=== PATIENT | female | born 1965 | race Two or more races ===

== ENCOUNTER 2016-06-28 02:15 | Emergency (ER) | payer BC, OTHER ==
--- NOTE | 2016-06-28 03:52 | ER Document Report ---
ED General - General Chief Complaint: Flank Pain Stated Complaint: LEFT SIDE FLANK PAIN Mode of Arrival: Ambulatory Information source: Patient Notes: Patient presents to emergency department with complaints of left-sided flank pain and nausea and vomiting. Patient reports history of arthritis in her hips joints and knees. Patient is on chronic pain medication for this, percocet 10mg /325 QID per [facility]. Pt is also taking phenteremine. She reports she's had a headache for weeks she's felt hot her last bowel movement was Saturday. Yesterday she made spaghetti. She started vomiting after she ate it. When she was vomiting her left flank started hurting. She denies fever. TRAVEL OUTSIDE OF THE [place] IN LAST 30 DAYS: No - HPI Onset: Yesterday Onset/Duration: Sudden Quality of pain: Achy, Sharp Severity: Severe Pain Level: 5 Associated symptoms: Nausea, Vomiting Exacerbated by: Denies Relieved by: Denies Similar symptoms previously: No Recently seen / treated by doctor: No - Related Data Allergies/Adverse Reactions: No Known Drug Allergies Allergy (Unknown, Verified 12/31/12 19:52) tapes/bandaids Allergy (Intermediate, Uncoded 12/31/12 19:52) irritation/redness at site of skin contact Home Medications: Current Home Medications Cyclobenzaprine HCl [Cyclobenzaprine HCl] 10 mg PO TID 06/28/16 [History] Diclofenac Sodium [Diclofenac Sodium] 1 applic TOP BID 06/28/16 [History] Lisinopril [Lisinopril] 10 mg PO DAILY 06/28/16 [History] Oxycodone HCl/Acetaminophen [Percocet 5-325 mg Tablet] 1 tab PO Q6HP PRN [History] Past Medical History - General Information source: Patient Last Menstrual Period: na - Social History Smoking Status: Never Smoker Cigarette use (# per day): No Chew tobacco use (# tins/day): No Frequency of alcohol use: Occasional Drug Abuse: None Lives with: Family Family History: Reviewed & Not Pertinent Patient has suicidal ideation: No Patient has homicidal ideation: No - Past Medical History Cardiac Medical History: Denies: Hx Coronary Artery Disease, Hx Heart Attack, Hx Hypertension Pulmonary Medical History: Denies: Hx Asthma - SEASONAL ALLERGIES, Hx Bronchitis, Hx COPD, Hx Pneumonia Neurological Medical History: Denies: Hx Cerebrovascular Accident, Hx Seizures Endocrine Medical History: Denies: Hx Graves' Disease, Hx Hyperthyroidism, Hx Hypothyroidism Renal/ Medical History: Reports: Hx Ovarian Cysts - lap ovarian cystectomy September 2012. Denies: Hx End Stage Renal Disease, Hx Kidney Stones, Hx Peritoneal Dialysis, Hx Pelvic Inflammatory Disease Malignancy Medical History: Denies: Hx Breast Cancer, Hx Cervical Cancer, Hx Leukemia, Hx Ovarian Cancer Musculoskeltal Medical History: Reports Hx Arthritis, Denies Hx Fibromyalgia, Denies Hx Muscular Dystrophy Traumatic Medical History: Denies: Hx Fractures Infectious Medical History: Denies: Hx HIV Past Surgical History: Reports: Hx Cholecystectomy - open 1990, Hx Gynecologic Surgery - essure, Hx Orthopedic Surgery - right knee. Denies: Hx Appendectomy, Hx Bowel Surgery, Hx Section, Hx Coronary Artery Bypass Graft, Hx Gastric Bypass Surgery, Hx Herniorrhaphy, Hx Hysterectomy, Hx Mastectomy, Hx Pacemaker, Hx Tonsillectomy, Hx Tubal Ligation - Immunizations Hx Diphtheria, Pertussis, Tetanus Vaccination: No Review of Systems - Review of Systems Notes: Review HPI for review of systems., All other systems negative Physical Exam - Vital signs Vitals: Temp Pulse Resp BP Pulse Ox 97.7 F 82 18 139/80 H 98 06/28/16 02:17 06/28/16 02:17 06/28/16 02:17 06/28/16 02:17 06/28/16 02:17 - Notes Notes: PHYSICAL EXAMINATION: GENERAL: Well-appearing c/o severe flank pain HEAD: Atraumatic, normocephalic. EYES: Pupils equal round extraocular movements intact, sclera anicteric, conjunctiva are normal. ENT: nares patent, Moist mucous membranes. NECK: Normal range of motion, supple without lymphadenopathy LUNGS: CTAB and equal. No wheezes rales or rhonchi. HEART: Regular rate and rhythm without murmurs ABDOMEN: Soft, no tenderness. No guarding, no rebound denies pain BACK: C/O Left CVA tenderness EXTREMITIES: Normal range of motion, no pitting edema. No cyanosis. NEUROLOGICAL: Cranial nerves grossly intact. Normal sensory/motor exams. PSYCH: Normal mood, normal affect. SKIN: Warm, Dry, normal turgor, no rashes or lesions noted Course - Re-evaluation Re-evalutation: 06/28/16 No further vomiting noted WBC 16.5. Patient complaining of flank pain. Will be treated for UTI. Patient reports Toradol relieved her pain. She will be sent home with a prescription for Macrobid. Given a Macrobid here along with a Zofran dispense pack. Patient's feels much better. She was also instructed on the importance of monitoring her diet due to the medications she is taking that could cause constipation. She verbalized understanding - Vital Signs Vital signs: Temp Pulse Resp BP Pulse Ox 97.7 F 80 20 142/76 H 98 06/28/16 02:17 06/28/16 04:35 06/28/16 04:35 06/28/16 04:35 06/28/16 04:35 - Laboratory Result Diagrams: 06/28/16 04:02 06/28/16 04:02 Laboratory results interpreted by me: 06/28/16 06/28/16 06/28/16 04:02 04:02 05:31 WBC 16.4 H Seg Neutrophils % 91.4 H Lymphocytes % 5.2 L Absolute Neutrophils 15.0 H Glucose 153 H Ur Leukocyte Esterase TRACE H Urine Ascorbic Acid 20 H Discharge - Discharge Clinical Impression: Flank pain, Elevated blood pressure reading UTI (urinary tract infection) Qualifiers: Urinary tract infection type: site unspecified Hematuria presence: without hematuria Qualified Code(s): N39.0 - Urinary tract infection, site not specified Condition: Stable Disposition: HOME, SELF-CARE Instructions: Toradol Injection ([facility]), Urinary Tract Infection ([facility]), Antinausea Medication ([facility]), Vomiting ([facility]), Nitrofurantoin ([facility]) Additional Instructions: *You have been evaluated for flank pain, nausea/vomiting, UTI *Take medication as prescribed *Push fluids *Follow up with Dr Chandra tomorrow for recheck *Plan urine recheck in one week *Monitor your blood pressure. Your blood pressure was elevated today. This may be because you were anxious, in pain or because you need medication. It is important to follow up with your primary care provider for full evaluation. *Return to ED for worsening condition, changes, needs, fever, increased pain, concerns *Return to ED if not better in 24 hours Prescriptions: Nitrofurantoin/Nitrofuran Mac [Macrobid 100 mg Capsule] 100 mg PO BID #20 capsule Forms: Elevated Blood Pressure Referrals: MAYRA,SAL, DO [Primary Care Provider] - Follow up tomorrow
[2016-06-28] MEDS ORDERED: NORMAL SALINE 1000 ML 1,000 ML IV ONE (04:15)
[2016-06-28 04:22] LABS: ABSOLUTE LYMPHOCYTES (AUTO) 0.9 10^3/uL (0.5-4.7); ABSOLUTE MONOCYTES (AUTO) 0.5 10^3/uL (0.1-1.4); BASOPHILS % (AUTO) 0.3 % (0-2); EOSINOPHILS % (AUTO) 0.1 % (0-6); HEMATOCRIT 38.1 % (36.0-47.0); HEMOGLOBIN 12.8 g/dL (12.0-15.5); HGB HCT DIFFERENCE 0.3; LYMPHOCYTES % (AUTO) 5.2 % (13-45); MEAN CORPUSCULAR HEMOGLOBIN 28.7 pg (27.0-33.4); MEAN CORPUSCULAR HGB CONC 33.5 g/dL (32.0-36.0); MEAN CORPUSCULAR VOLUME 86 fl (80-97); RED BLOOD COUNT 4.45 10^6/uL (3.72-5.28); RED CELL DISTRIBUTION WIDTH 13.7 % (11.5-14.0); SEGMENTED NEUTROPHILS % (AUTO) 91.4 % (42-78); WHITE BLOOD COUNT 16.4 10^3/uL (4.0-10.5)
[2016-06-28 04:39] LABS: ALANINE AMINOTRANSFERASE 40 U/L (9-52); ALBUMIN 4.1 g/dL (3.5-5.0); ALKALINE PHOSPHATASE 113 U/L (38-126); ANION GAP 11 (5-19); ASPARTATE AMINO TRANSFERASE 25 U/L (14-36); BILIRUBIN,TOTAL 0.6 mg/dL (0.2-1.3); BLOOD UREA NITROGEN 10 mg/dL (7-20); CALCIUM 9.6 mg/dL (8.4-10.2); CARBON DIOXIDE 27 mmol/L (22-30); CHLORIDE 103 mmol/L (98-107); CREATININE RESULT 0.72 mg/dL (0.52-1.25); GLUCOSE 153 mg/dL (75-110); POTASSIUM 4.5 mmol/L (3.6-5.0); SODIUM 140.8 mmol/L (137-145); TOTAL PROTEIN 7.3 g/dL (6.3-8.2)
[2016-06-28] MEDS ORDERED: KETOROLAC TROMETHAMINE INJ/PF 30 MG/1 ML SDV IV ONE (05:14)
[2016-06-28] MEDS ORDERED: NORMAL SALINE 1000 ML 500 ML IV ONE (05:14)
[2016-06-28 05:53] LABS: BILIRUBIN,URINE NEGATIVE (NEGATIVE); GLUCOSE, URINE NEGATIVE (NEGATIVE); KETONES,URINE NEGATIVE (NEGATIVE); LEUKOCYTE ESTERASE,URINE TRACE (NEGATIVE); NITRITE,URINE NEGATIVE (NEGATIVE); PROTEIN,URINE NEGATIVE (NEGATIVE); URINE SPECIFIC GRAVITY 1.021; UROBILINOGEN,URINE NEGATIVE mg/dL (<2.0)
[2016-06-28 05:54] LABS: APPEARANCE,URINE SLIGHTLY-CLOUDY
[2016-06-28] MEDS ORDERED: CIPROFLOXACIN HCL 500 MG TABLET PO ONE (06:07)
[2016-06-28] MEDS ORDERED: ONDANSETRON ODT 4 MG TAB (6 TAB/DSPK) PO PRN (06:10)
[2016-06-28] MEDS ORDERED: NITROFURANTOIN MONOHYD/M-CRYST 100 MG CAPSULE PO ONE (06:11)
[2016-06-28 07:00] VITALS: BP 132/68
== END 2016-06-28 07:00 | disposition home or self-care (01) ==
LOC: ER 02:15
DX: N39.0 Urinary tract infection, site not specified (principal); R03.0 Elevated blood-pressure reading, without diagnosis of hypertension; R10.9 Unspecified abdominal pain; R11.2 Nausea with vomiting, unspecified; R51 Headache; M16.10 Unilateral primary osteoarthritis, unspecified hip; M17.9 Osteoarthritis of knee, unspecified; Z79.891 Long term (current) use of opiate analgesic; Z79.899 Other long term (current) drug therapy; Z90.49 Acquired absence of other specified parts of digestive tract
CPT/HCPCS: 99284; 96361; 96374; 36415; 84703; 85025; 80053; 81001; J1885; J7030; J8499

== ENCOUNTER → 2017-09-02 | Outpatient (CLI) | payer BC ==
--- NOTE | 2017-09-02 15:12 | RADIOLOGY REPORT (SQ) ---
EXAM DESCRIPTION: KNEE LEFT 4 VIEWS COMPLETED DATE/TIME: 09/02/2017 2:32 pm REASON FOR STUDY: PAIN IN LEFT KNEE M25.562 PAIN IN LEFT KNEE COMPARISON: 03/19/2018 NUMBER OF VIEWS: Four views. TECHNIQUE: AP, lateral, and both oblique radiographic images acquired of the left knee. LIMITATIONS: None. FINDINGS: MINERALIZATION: Normal. BONES: No acute fracture or dislocation. A sclerotic rim in the lateral aspect of the proximal, prob ably on a nonaggressive basis. JOINT: Mild to moderate narrowing, mild subchondral sclerosis and small osteophytes off of the media l and lateral articular margins. Moderate severe to marked patellofemoral compartment narrowing and osteophytes off of the patellar poles. No effusion. SOFT TISSUES: No soft tissue swelling. No radio-opaque foreign body. OTHER: No other significant finding. IMPRESSION: 1 Tricompartmental arthritic changes, more pronounced and severe at the patellofemoral c ompartment. TECHNICAL DOCUMENTATION: JOB ID: [id number] [employer]- All Rights Reserved Reading location - IP/workstation name: [email or web address]
== END ==
LOC: OD 14:08
PROVIDERS: ATTEND Family Medicine
DX: M25.562 Pain in left knee (principal)

== ENCOUNTER 2018-12-27 12:49 | Emergency (ER) | payer BC ==
[2018-12-27 12:55] VITALS: BP 156/83
--- NOTE | 2018-12-27 13:02 | ER Document Report ---
ED Medical Screen (RME) - General Chief Complaint: Abdominal Pain Stated Complaint: RIGHT FLANK PAIN Time Seen by Provider: 12/27/18 12:54 Primary Care Provider: SAL NUNEZ DO [Primary Care Provider] - Follow up as needed Information source: Patient Notes: Patient presents complaining of right lateral side pain for the past 4 days that radiates to the right flank area. Patient denies any fever, nausea, vomiting or urinary symptoms. Patient does report diarrhea x2 episodes today. hx: Hypertension, diabetes, cholecystectomy, orthopedic surgery I have greeted and performed a rapid initial assessment of this patient. A comprehensive ED assessment and evaluation of the patient, analysis of test results and completion of the medical decision making process will be conducted by additional ED providers. TRAVEL OUTSIDE OF THE [place] IN LAST 30 DAYS: No - Related Data Allergies/Adverse Reactions: No Known Drug Allergies Allergy (Unknown, Verified 12/27/18 12:50) tapes/bandaids Allergy (Intermediate, Uncoded 12/27/18 12:50) irritation/redness at site of skin contact Past Medical History - Past Medical History Cardiac Medical History: Denies: Hx Coronary Artery Disease, Hx Heart Attack, Hx Hypertension Pulmonary Medical History: Denies: Hx Asthma - SEASONAL ALLERGIES, Hx Bronchitis, Hx COPD, Hx Pneumonia Neurological Medical History: Denies: Hx Cerebrovascular Accident, Hx Seizures Endocrine Medical History: Denies: Hx Graves' Disease, Hx Hyperthyroidism, Hx Hypothyroidism Renal/ Medical History: Reports: Hx Ovarian Cysts - lap ovarian cystectomy September 2012. Denies: Hx End Stage Renal Disease, Hx Kidney Stones, Hx Peritoneal Dialysis, Hx Pelvic Inflammatory Disease Malignancy Medical History: Denies: Hx Breast Cancer, Hx Cervical Cancer, Hx Leukemia, Hx Ovarian Cancer Musculoskeltal Medical History: Reports Hx Arthritis, Denies Hx Fibromyalgia, Denies Hx Muscular Dystrophy, Denies Hx Systemic Lupus Erythematosus Traumatic Medical History: Denies: Hx Fractures Infectious Medical History: Denies: Hx HIV Past Surgical History: Reports: Hx Cholecystectomy - open 1990, Hx Gynecologic Surgery - essure, Hx Orthopedic Surgery - right knee. Denies: Hx Appendectomy, Hx Bowel Surgery, Hx Section, Hx Coronary Artery Bypass Graft, Hx Gastric Bypass Surgery, Hx Herniorrhaphy, Hx Hysterectomy, Hx Mastectomy, Hx Pacemaker, Hx Tonsillectomy, Hx Tubal Ligation - Immunizations Hx Diphtheria, Pertussis, Tetanus Vaccination: No Physical Exam - Vital signs Vitals: Temp Pulse Resp BP Pulse Ox 97.9 F 92 17 156/83 H 98 12/27/18 12:54 12/27/18 12:54 12/27/18 12:54 12/27/18 12:54 12/27/18 12:54 - Abdominal Inspection: Morbidly Obese Tenderness: Tender - Right lateral side pain Course - Vital Signs Vital signs: Temp Pulse Resp BP Pulse Ox 97.9 F 92 17 156/83 H 98 12/27/18 12:54 12/27/18 12:54 12/27/18 12:54 12/27/18 12:54 12/27/18 12:54 Doctor's Discharge - Discharge Referrals: SAL NUNEZ DO [Primary Care Provider] - Follow up as needed
[2018-12-27 13:23] LABS: ABSOLUTE BASOPHILS # (AUTO) 0.1 10^3/uL (0.0-0.2); ABSOLUTE EOSINOPHILS # (AUTO) 0.4 10^3/uL (0.0-0.6); ABSOLUTE LYMPHOCYTES (AUTO) 2.7 10^3/uL (0.5-4.7); ABSOLUTE MONOCYTES (AUTO) 0.5 10^3/uL (0.1-1.4); ABSOLUTE NEUT (AUTO) 7.7 10^3/uL (1.7-8.2); BASOPHILS % (AUTO) 0.4 % (0-2); EOSINOPHILS % (AUTO) 3.3 % (0-6); HEMOGLOBIN 12.2 g/dL (12.0-15.5); LYMPHOCYTES % (AUTO) 23.7 % (13-45); MEAN CORPUSCULAR HEMOGLOBIN 27.1 pg (27.0-33.4); MEAN CORPUSCULAR VOLUME 82 fl (80-97); MONOCYTES % (AUTO) 4.2 % (3-13); PLATELET COUNT 346 10^3/uL (150-450); RED BLOOD COUNT 4.52 10^6/uL (3.72-5.28); RED CELL DISTRIBUTION WIDTH 15.1 % (11.5-14.0); SEGMENTED NEUTROPHILS % (AUTO) 68.4 % (42-78); TOTAL CELLS COUNTED % (AUTO) 100 %; WHITE BLOOD COUNT 11.3 10^3/uL (4.0-10.5)
[2018-12-27 13:44] LABS: ALBUMIN 4.1 g/dL (3.5-5.0); ALKALINE PHOSPHATASE 103 U/L (38-126); ANION GAP 9 (5-19); ASPARTATE AMINO TRANSFERASE 29 U/L (14-36); BILIRUBIN,DIRECT 0.1 mg/dL (0.0-0.4); BILIRUBIN,TOTAL 0.6 mg/dL (0.2-1.3); BLOOD UREA NITROGEN 13 mg/dL (7-20); CALCIUM 9.1 mg/dL (8.4-10.2); CARBON DIOXIDE 29 mmol/L (22-30); CHLORIDE 103 mmol/L (98-107); GLUCOSE 175 mg/dL (75-110); POTASSIUM 3.9 mmol/L (3.6-5.0); TOTAL PROTEIN 7.3 g/dL (6.3-8.2)
[2018-12-27 13:45] LABS: APPEARANCE,URINE CLOUDY; BILIRUBIN,URINE NEGATIVE (NEGATIVE); COLOR,URINE YELLOW; GLUCOSE, URINE NEGATIVE (NEGATIVE); KETONES,URINE NEGATIVE (NEGATIVE); LEUKOCYTE ESTERASE,URINE MODERATE (NEGATIVE); NITRITE,URINE NEGATIVE (NEGATIVE); PROTEIN,URINE NEGATIVE (NEGATIVE); URINE SPECIFIC GRAVITY 1.021; UROBILINOGEN,URINE NEGATIVE mg/dL (<2.0)
[2018-12-27] MEDS ORDERED: KETOROLAC TROMETHAMINE INJ/PF 30 MG/1 ML SDV IV ONE (14:09)
--- NOTE | 2018-12-27 14:15 | ER Document Report ---
ED General - General Chief Complaint: Abdominal Pain Stated Complaint: RIGHT FLANK PAIN Time Seen by Provider: 12/27/18 12:54 Primary Care Provider: SAL CARR DO [Primary Care Provider] - Follow up as needed TRAVEL OUTSIDE OF THE [place] IN LAST 30 DAYS: No - HPI Notes: Patient is a 53-year-old female presents emergency department for evaluation of right-sided flank pain. She had similar symptoms about 10 days ago. It seemed to get better. It was a constant ache with occasional stabbing pains. She points to her right flank area, states now it radiates into her right back. She states the pain went away but restarted on . She saw her primary care provider. He recommended she try her Voltaren gel on the area and ordered an ultrasound. She has not yet had the ultrasound. She said no fevers or chills. No nausea or vomiting. Eating and drinking normally. She did have 2 episodes of loose bowels. No hematuria, dysuria, or urinary frequency. - Related Data Allergies/Adverse Reactions: No Known Drug Allergies Allergy (Unknown, Verified 12/27/18 12:50) tapes/bandaids Allergy (Intermediate, Uncoded 12/27/18 12:50) irritation/redness at site of skin contact Past Medical History - General Information source: Patient - Social History Smoking Status: Never Smoker Frequency of alcohol use: None Drug Abuse: None Family History: Reviewed & Not Pertinent Patient has suicidal ideation: No Patient has homicidal ideation: No - Past Medical History Cardiac Medical History: Denies: Hx Coronary Artery Disease, Hx Heart Attack, Hx Hypertension Pulmonary Medical History: Denies: Hx Asthma - SEASONAL ALLERGIES, Hx Bronchitis, Hx COPD, Hx Pneumonia Neurological Medical History: Denies: Hx Cerebrovascular Accident, Hx Seizures Endocrine Medical History: Denies: Hx Graves' Disease, Hx Hyperthyroidism, Hx Hypothyroidism Renal/ Medical History: Reports: Hx Ovarian Cysts - lap ovarian cystectomy September 2012. Denies: Hx End Stage Renal Disease, Hx Kidney Stones, Hx Peritoneal Dialysis, Hx Pelvic Inflammatory Disease Malignancy Medical History: Denies: Hx Breast Cancer, Hx Cervical Cancer, Hx Leukemia, Hx Ovarian Cancer Musculoskeletal Medical History: Reports Hx Arthritis, Denies Hx Fibromyalgia, Denies Hx Muscular Dystrophy, Denies Hx Systemic Lupus Erythematosus Traumatic Medical History: Denies: Hx Fractures Infectious Medical History: Denies: Hx HIV Past Surgical History: Reports: Hx Cholecystectomy - open 1990, Hx Gynecologic Surgery - essure, Hx Orthopedic Surgery - right knee. Denies: Hx Appendectomy, Hx Bowel Surgery, Hx Section, Hx Coronary Artery Bypass Graft, Hx Gastric Bypass Surgery, Hx Herniorrhaphy, Hx Hysterectomy, Hx Mastectomy, Hx Pacemaker, Hx Tonsillectomy, Hx Tubal Ligation - Immunizations Hx Diphtheria, Pertussis, Tetanus Vaccination: No Review of Systems - Review of Systems Constitutional: No symptoms reported EENT: No symptoms reported Cardiovascular: No symptoms reported Respiratory: No symptoms reported Gastrointestinal: See HPI Genitourinary: See HPI Female Genitourinary: No symptoms reported Musculoskeletal: See HPI Skin: No symptoms reported Neurological/Psychological: No symptoms reported Physical Exam - Vital signs Vitals: Temp Pulse Resp BP Pulse Ox 97.9 F 92 17 156/83 H 98 12/27/18 12:54 12/27/18 12:54 12/27/18 12:54 12/27/18 12:54 12/27/18 12:54 - Notes Notes: This is a very pleasant 53-year-old female who appears her stated age in no acute distress. Vital signs reviewed, please refer to chart. Head is normocephalic, atraumatic. Pupils equal round, reactive to light. Neck is supple without meningismus. Heart is regular rate and rhythm. Lungs are clear to auscultation bilaterally. Abdomen is soft, nontender, normoactive bowel sounds throughout. She is significantly tender over the oblique muscles on the right, more lateral of the peritoneal cavity. No CVA tenderness. Her tenderness is also reproducible over the paraspinal musculature from L2-L4 on the right. Extremities without cyanosis, clubbing. Posterior calves are nontender. Peripheral pulses are equal. Skin is warm and dry. Patient is awake, alert, neurological exam is nonfocal. Course - Re-evaluation Re-evalutation: 12/27/18 14:16 Patient presents emergency department for evaluation of right flank pain. I watched the patient get up out of the chair, get down into the bed, and then back up again. This caused her significant discomfort. She does not have any significant abdominal tenderness on exam. My strong suspicion is that this is musculoskeletal. I explained findings to the patient. With the lack of any oth er significant symptoms, beyond 2 loose stools in the last 24 hours, I will treat conservatively as musculoskeletal. I encouraged her to continue the Voltaren gel. The patient is already on Flexeril as well as oxycodone at home. She is given Toradol here. She is to follow-up with primary care, return to the ED with worsening or new concerning symptoms of any sort. - Vital Signs Vital signs: Temp Pulse Resp BP Pulse Ox 97.9 F 92 17 156/83 H 98 12/27/18 12:54 12/27/18 12:54 12/27/18 12:54 12/27/18 12:54 12/27/18 12:54 - Laboratory Result Diagrams: 12/27/18 13:13 12/27/18 13:13 Laboratory results interpreted by me: 12/27/18 12/27/18 12/27/18 13:04 13:13 13:13 WBC 11.3 H RDW 15.1 H Glucose 175 H Ur Leukocyte Esterase MODERATE H Discharge - Discharge Clinical Impression: Right flank pain Condition: Stable Disposition: HOME, SELF-CARE Instructions: Flank Pain ([facility]) Additional Instructions: Continue Voltaren gel, Flexeril, oxycodone as previously prescribed. Follow-up with Dr. Carr next week. Return to the emergency department if you develop worsening or new concerning symptoms of any sort. Referrals: SAL CARR DO [Primary Care Provider] - Follow up as needed
== END 2018-12-27 14:51 | disposition home or self-care (01) ==
LOC: ER 12:49
DX: R10.9 Unspecified abdominal pain (principal)
CPT/HCPCS: 99284; 96374; 36415; 83690; 84703; 85025; 80053; 81001; J1885

== ENCOUNTER 2019-01-13 14:06 | Emergency (ER) | payer BC ==
[2019-01-13] MEDS ORDERED: IBUPROFEN 800 MG TABLET PO ONE (14:31)
--- NOTE | 2019-01-13 14:41 | ER Document Report ---
ED Medical Screen (RME) - General Chief Complaint: Numbness Stated Complaint: RIGHT HEAD/EAR PAIN Time Seen by Provider: 01/13/19 14:16 Primary Care Provider: SAL NUNEZ DO [Primary Care Provider] - Follow up as needed Mode of Arrival: Ambulatory Information source: Patient Notes: Patient presents emergency department with complaints of right-sided ear pain pressure, swollen lymph nodes just feeling off kilter. Patient reports she is a diabetic. She is also being worked up for right-sided pain and has an ultrasound tomorrow scheduled. Also has history of high blood pressure. Patient is very tearful. Patient reports that she is been evaluated by her primary care provider and she also went to urgent care today. Reports she was at [employer] today working on the computer when her vision became blurred blurry. Her boss offered to call her in ambulance but she is not sure why. No blurred vision at this time but she reports she needs to look at the computer. No numbness or tingling. Patient just complains of a headache. She is on chronic pain management and takes OxyContin first thing in the morning for her hip and knee pain. She has not taken anything for her headache and right-sided head pain. Patient temples tender to palpate. Is very emotional tearful. She reports she is been treated by the urgent care, [facility] [place], twice for swollen lymph nodes twice with antibiotics for the same complaint. I have greeted and performed a rapid initial assessment of this patient. A comprehensive ED assessment and evaluation of the patient, analysis of test results and completion of the medical decision making process will be conducted by additional ED providers. Dictation of this chart was performed using voice recognition software; therefore, there may be some unintended grammatical errors. TRAVEL OUTSIDE OF THE [place] IN LAST 30 DAYS: No - Related Data Allergies/Adverse Reactions: No Known Drug Allergies Allergy (Unknown, Verified 12/27/18 12:50) tapes/bandaids Allergy (Intermediate, Uncoded 12/27/18 12:50) irritation/redness at site of skin contact Past Medical History - Social History Frequency of alcohol use: None Drug Abuse: None - Past Medical History Cardiac Medical History: Denies: Hx Coronary Artery Disease, Hx Heart Attack, Hx Hypertension Pulmonary Medical History: Denies: Hx Asthma - SEASONAL ALLERGIES, Hx Bronchitis, Hx COPD, Hx Pneumonia Neurological Medical History: Denies: Hx Cerebrovascular Accident, Hx Seizures Endocrine Medical History: Denies: Hx Graves' Disease, Hx Hyperthyroidism, Hx Hypothyroidism Renal/ Medical History: Reports: Hx Ovarian Cysts - lap ovarian cystectomy September 2012. Denies: Hx End Stage Renal Disease, Hx Kidney Stones, Hx Peritoneal Dialysis, Hx Pelvic Inflammatory Disease Malignancy Medical History: Denies: Hx Breast Cancer, Hx Cervical Cancer, Hx Leukemia, Hx Ovarian Cancer Musculoskeltal Medical History: Reports Hx Arthritis, Denies Hx Fibromyalgia, Denies Hx Muscular Dystrophy, Denies Hx Systemic Lupus Erythematosus Traumatic Medical History: Denies: Hx Fractures Infectious Medical History: Denies: Hx HIV Past Surgical History: Reports: Hx Cholecystectomy - open 1990, Hx Gynecologic Surgery - essure, Hx Orthopedic Surgery - right knee. Denies: Hx Appendectomy, Hx Bowel Surgery, Hx Section, Hx Coronary Artery Bypass Graft, Hx Gastric Bypass Surgery, Hx Herniorrhaphy, Hx Hysterectomy, Hx Mastectomy, Hx Pacemaker, Hx Tonsillectomy, Hx Tubal Ligation - Immunizations Hx Diphtheria, Pertussis, Tetanus Vaccination: No Physical Exam - Vital signs Vitals: Temp Pulse Resp BP Pulse Ox 98.0 F 89 18 174/88 H 97 01/13/19 14:11 01/13/19 14:11 01/13/19 14:11 01/13/19 14:11 01/13/19 14:11 Course - Vital Signs Vital signs: Temp Pulse Resp BP Pulse Ox 98.0 F 89 18 174/88 H 97 01/13/19 14:11 01/13/19 14:11 01/13/19 14:11 01/13/19 14:11 01/13/19 14:11 Doctor's Discharge - Discharge Referrals: SAL NUNEZ DO [Primary Care Provider] - Follow up as needed
[2019-01-13 14:59] LABS: ABSOLUTE EOSINOPHILS # (AUTO) 0.4 10^3/uL (0.0-0.6); ABSOLUTE LYMPHOCYTES (AUTO) 2.7 10^3/uL (0.5-4.7); ABSOLUTE MONOCYTES (AUTO) 0.7 10^3/uL (0.1-1.4); ABSOLUTE NEUT (AUTO) 6.2 10^3/uL (1.7-8.2); BASOPHILS % (AUTO) 0.4 % (0-2); EOSINOPHILS % (AUTO) 4.4 % (0-6); HEMATOCRIT 36.4 % (36.0-47.0); LYMPHOCYTES % (AUTO) 26.6 % (13-45); MEAN CORPUSCULAR HEMOGLOBIN 26.6 pg (27.0-33.4); MEAN CORPUSCULAR HGB CONC 32.9 g/dL (32.0-36.0); MEAN CORPUSCULAR VOLUME 81 fl (80-97); MONOCYTES % (AUTO) 7.3 % (3-13); PLATELET COUNT 368 10^3/uL (150-450); RED BLOOD COUNT 4.51 10^6/uL (3.72-5.28); RED CELL DISTRIBUTION WIDTH 15.3 % (11.5-14.0); SEGMENTED NEUTROPHILS % (AUTO) 61.3 % (42-78); TOTAL CELLS COUNTED % (AUTO) 100 %; WHITE BLOOD COUNT 10.1 10^3/uL (4.0-10.5)
[2019-01-13 15:05] LABS: APPEARANCE,URINE SLIGHTLY-CLOUDY; BILIRUBIN,URINE NEGATIVE (NEGATIVE); COLOR,URINE YELLOW; GLUCOSE, URINE NEGATIVE (NEGATIVE); KETONES,URINE NEGATIVE (NEGATIVE); LEUKOCYTE ESTERASE,URINE NEGATIVE (NEGATIVE); NITRITE,URINE NEGATIVE (NEGATIVE); PROTEIN,URINE NEGATIVE (NEGATIVE); UROBILINOGEN,URINE NEGATIVE mg/dL (<2.0)
[2019-01-13 15:17] LABS: ALBUMIN 3.8 g/dL (3.5-5.0); ALKALINE PHOSPHATASE 116 U/L (38-126); ANION GAP 7 (5-19); ASPARTATE AMINO TRANSFERASE 23 U/L (14-36); BILIRUBIN,DIRECT 0.2 mg/dL (0.0-0.4); BILIRUBIN,TOTAL 0.4 mg/dL (0.2-1.3); BLOOD UREA NITROGEN 9 mg/dL (7-20); CALCIUM 8.9 mg/dL (8.4-10.2); CARBON DIOXIDE 30 mmol/L (22-30); CHLORIDE 102 mmol/L (98-107); GLUCOSE 156 mg/dL (75-110); POTASSIUM 3.7 mmol/L (3.6-5.0); TOTAL PROTEIN 6.9 g/dL (6.3-8.2)
--- NOTE | 2019-01-13 16:46 | RADIOLOGY REPORT (SQ) ---
EXAM DESCRIPTION: CT SOFT TISSUE NECK WITH COMPLETED DATE/TIME: 01/13/2019 4:24 pm REASON FOR STUDY: R side neck pain/swelling COMPARISON: None. TECHNIQUE: Post IV contrasted scanning from skull base through lung apices with review of bone, soft tissue and lung windows. Reconstructed coronal and sagittal MPR images reviewed. All images stored on PACS. All CT scanners at this facility use dose modulation, iterative reconstruction, and/or weight based d osing when appropriate to reduce radiation dose to as low as reasonably achievable (ALARA). [facility]: Dose Right [facility]: CareDose [facility]: Dose Right [facility]: Teradose 4D [facility]: sendwithus CONTRAST TYPE AND DOSE: 74 mL Omnipaque 350 RENAL FUNCTION: BUN 9, creatinine 0.59 RADIATION DOSE: CT Rad equipment meets quality standard of care and radiation dose reduction techniq ues were employed. CTDIvol: 19.8 mGy. DLP: 561 mGy-cm. . LIMITATIONS: None. FINDINGS: SKULL BASE: Intact. MAJOR SALIVARY GLANDS: No solid or cystic masses. The right parotid gland is slightly larger than th e left. No surrounding inflammation. LYMPHADENOPATHY: Scattered small bilateral cervical lymph nodes most likely reactive. MUCOSAL MASSES OR ASYMMETRY: No mucosal masses or asymmetry. LARYNX/CORDS: No abnormal findings. VASCULAR STRUCTURES: The major vessels are patent. LUNG APICES: Clear. BONES: Intact. THYROID: Normal size. No masses. PARANASAL SINUSES: Clear. OTHER: No other significant finding. IMPRESSION: Scattered small cervical lymph nodes. Slight enlargement of the right parotid gland com pared to the left no focal inflammatory changes. TECHNICAL DOCUMENTATION: JOB ID: [id number] Quality ID # [id number]: Final reports with documentation of one or more dose reduction techniques (e.g., Au tomated exposure control, adjustment of the mA and/or kV according to patient size, use of iterative reconstruction technique) 2010 [employer]- All Rights Reserved Reading location - IP/workstation name: [email or web address]
--- NOTE | 2019-01-13 16:58 | ER Document Report ---
HPI - HPI Time Seen by Provider: 01/13/19 14:16 Pain Level: 4 Notes: Patient is a 53-year-old female presenting to the emergency department with chief complaint of right sided facial and neck and ear pressure and pain. She reports she was seen at the urgent care on Saturday and started on amoxicillin. She states that she has had this in the past, was given amoxicillin and it resolved her symptoms. She reports this time the pain has returned and her primary care provider recommended that she get a CAT scan. - REPRODUCTIVE Reproductive: DENIES: : - DERM Skin Color: Normal Past Medical History - General Information source: Patient - Social History Smoking Status: Never Smoker Frequency of alcohol use: None Drug Abuse: None Family History: Reviewed & Not Pertinent Patient has suicidal ideation: No Patient has homicidal ideation: No - Past Medical History Cardiac Medical History: Denies: Hx Coronary Artery Disease, Hx Heart Attack, Hx Hypertension Pulmonary Medical History: Denies: Hx Asthma - SEASONAL ALLERGIES, Hx Bronchitis, Hx COPD, Hx Pneumonia Neurological Medical History: Denies: Hx Cerebrovascular Accident, Hx Seizures Endocrine Medical History: Denies: Hx Graves' Disease, Hx Hyperthyroidism, Hx Hypothyroidism Renal/ Medical History: Reports: Hx Ovarian Cysts - lap ovarian cystectomy September 2012. Denies: Hx End Stage Renal Disease, Hx Kidney Stones, Hx Peritoneal Dialysis, Hx Pelvic Inflammatory Disease Malignancy Medical History: Denies: Hx Breast Cancer, Hx Cervical Cancer, Hx Leukemia, Hx Ovarian Cancer Musculoskeletal Medical History: Reports Hx Arthritis, Denies Hx Fibromyalgia, Denies Hx Muscular Dystrophy, Denies Hx Systemic Lupus Erythematosus Traumatic Medical History: Denies: Hx Fractures Infectious Medical History: Denies: Hx HIV Past Surgical History: Reports: Hx Cholecystectomy - open 1990, Hx Gynecologic Surgery - essure, Hx Orthopedic Surgery - right knee. Denies: Hx Appendectomy, Hx Bowel Surgery, Hx Section, Hx Coronary Artery Bypass Graft, Hx Gastric Bypass Surgery, Hx Herniorrhaphy, Hx Hysterectomy, Hx Mastectomy, Hx Pacemaker, Hx Tonsillectomy, Hx Tubal Ligation - Immunizations Hx Diphtheria, Pertussis, Tetanus Vaccination: No Vertical Provider Document - CONSTITUTIONAL Notes: PHYSICAL EXAMINATION: GENERAL: Well-appearing, well-nourished and in no acute distress. HEAD: Atraumatic, normocephalic. Mild right facial swelling. EYES: Pupils equal round and reactive to light, extraocular movements intact, conjunctiva are normal. ENT: Nares patent, oropharynx clear without exudates. Moist mucous membranes. Bilateral TMs unremarkable, no mastoid tenderness. NECK: Normal range of motion, supple without lymphadenopathy LUNGS: Breath sounds clear to auscultation bilaterally and equal. No wheezes rales or rhonchi. HEART: Regular rate and rhythm without murmurs ABDOMEN: Soft, nontender, nondistended abdomen. No guarding, no rebound. No masses appreciated. Female : deferred Musculoskeletal: Normal range of motion, no pitting or edema. No cyanosis. NEUROLOGICAL: Cranial nerves grossly intact. Normal speech, normal gait. Normal sensory, motor exams PSYCH: Normal mood, normal affect. SKIN: Warm, Dry, normal turgor, no rashes or lesions noted. - INFECTION CONTROL TRAVEL OUTSIDE OF THE [place] IN LAST 30 DAYS: No Course - Re-evaluation Re-evalutation: Soft Tissue Neck CT 01/13/19 15:41 IMPRESSION: Scattered small cervical lymph nodes. Slight enlargement of the right parotid gland compared to the left no focal inflammatory changes. Laboratory 01/13/19 01/13/19 01/13/19 14:45 14:45 14:45 WBC 10.1 RBC 4.51 Hgb 12.0 Hct 36.4 MCV 81 MCH 26.6 L MCHC 32.9 RDW 15.3 H Plt Count 368 Lymph % (Auto) 26.6 [place] % (Auto) 7.3 Eos % (Auto) 4.4 Baso % (Auto) 0.4 Absolute Neuts (auto) 6.2 Absolute Lymphs (auto) 2.7 Absolute Monos (auto) 0.7 Absolute Eos (auto) 0.4 Absolute Basos (auto) 0.0 Seg Neutrophils % 61.3 Sodium 138.9 Potassium 3.7 Chloride 102 Carbon Dioxide 30 Anion Gap 7 BUN 9 Creatinine 0.59 Est GFR ( Amer) > 60 Est GFR (MDRD) Non-Af > 60 Glucose 156 H Calcium 8.9 Total Bilirubin 0.4 Direct Bilirubin 0.2 Neonat Total Bilirubin Not Reportable Neonat Direct Bilirubin Not Reportable Neonat Indirect Bili Not Reportable AST 23 ALT 24 Alkaline Phosphatase 116 Total Protein 6.9 Albumin 3.8 Urine Color YELLOW Urine Appearance SLIGHTLY-CLOUDY Urine pH 5.0 Ur Specific [place] 1.020 Urine Protein NEGATIVE Urine Glucose (UA) NEGATIVE Urine Ketones NEGATIVE Urine Blood NEGATIVE Urine Nitrite NEGATIVE Urine Bilirubin NEGATIVE Urine Urobilinogen NEGATIVE Ur Leukocyte Esterase NEGATIVE Urine WBC (Auto) 2 Urine RBC (Auto) 1 Squamous Epi Cells Auto 6 Urine Mucus (Auto) RARE Urine Ascorbic Acid NEGATIVE Patient was initially seen by provider in triage who initiated her work-up. Work-up today has been benign. No definitive cause of the right sided facial discomfort and swelling. CT soft tissue was also negative. Patient will be encouraged to continue taking the oral antibiotics as prescribed by her primary care provider. She will follow-up with them as discussed. The patient's emergency department workup and current diagnosis were explained to the patient and or family. Follow-up instructions were provided. Medications if prescribed were discussed. Instructions for when to return to the emergency department including specific worrisome symptoms were discussed with the patient and/or family. - Vital Signs Vital signs: Temp Pulse Resp BP Pulse Ox 98.0 F 89 18 174/88 H 97 01/13/19 14:11 01/13/19 14:11 01/13/19 14:11 01/13/19 14:11 01/13/19 14:11 - Laboratory Result Diagrams: 01/13/19 14:45 01/13/19 14:45 Laboratory results interpreted by me: 01/13/19 01/13/19 14:45 14:45 MCH 26.6 L RDW 15.3 H Glucose 156 H Discharge - Discharge Clinical Impression: Right ear pain, Right facial pain Condition: Stable Disposition: HOME, SELF-CARE Additional Instructions: The CAT scan of your neck was normal today. Please continue taking the antibiotics as prescribed by your primary care provider. Start taking the prednisone as prescribed. Follow-up with the ears/nose/throat doctor that I have listed below. Please continue alternating Tylenol or ibuprofen for the pain. Prescriptions: Prednisone [Deltasone 20 mg Tablet] 3 tab PO DAILY 5 Days #15 tablet Forms: Return to Work Referrals: NICOLE HERNANDES DO [ASSOCIATE] - Follow up as needed
[2019-01-13 17:20] VITALS: BP 137/68
== END 2019-01-13 17:15 | disposition home or self-care (01) ==
LOC: ER 14:06
DX: R51 Headache (principal); H92.01 Otalgia, right ear; M54.2 Cervicalgia; R59.0 Localized enlarged lymph nodes
CPT/HCPCS: 36415; 70491; 80053; 81001; 85025; 99283

== ENCOUNTER → 2019-01-19 | Outpatient (CLI) | payer BC ==
--- NOTE | 2019-01-19 15:03 | WOMENS IMAGING REPORT ---
EXAM DESCRIPTION: U/S ABDOMEN TOTAL COMPLETED DATE/TIME: 01/19/2019 2:04 pm REASON FOR STUDY: R10.31 US EXAM ABDOM COMPL R10.31 RIGHT LOWER QUADRANT PAIN COMPARISON: None. TECHNIQUE: Dynamic and static grayscale images acquired of the abdomen and recorded on PACS. Additio nal selected color Doppler and spectral images recorded. Note: Study does not meet criteria for complete doppler/duplex scan LIMITATIONS: None. FINDINGS: PANCREAS: No masses. Visualized pancreatic duct normal caliber. LIVER: Fatty infiltration. 15.8 cm. No masses. LIVER VASCULATURE: Normal directional flow of the main portal vein and hepatic veins. GALLBLADDER: Surgically absent. ULTRASOUND-DETECTED RIBEIRO'S SIGN: Negative. INTRAHEPATIC DUCTS AND COMMON DUCT: CBD and intrahepatic ducts normal caliber. No filling defects. INFERIOR VENA CAVA: Normal flow. AORTA: No aneurysm. RIGHT KIDNEY: Normal size. Normal echogenicity. No solid or suspicious masses. No hydronephros is. No calcifications. LEFT KIDNEY: Normal size. Normal echogenicity. No solid or suspicious masses. No hydronephrosi s. No calcifications. SPLEEN: Normal size. No solid masses. PERITONEAL AND PLEURAL SPACES: No ascites or effusions. OTHER: No other significant finding. IMPRESSION: Fatty liver. Absent gallbladder. TECHNICAL DOCUMENTATION: JOB ID: [id number] [employer]- All Rights Reserved Reading location - IP/workstation name: [email or web address]
== END ==
LOC: WI 13:20
PROVIDERS: ATTEND Family Medicine
DX: R10.31 Right lower quadrant pain (principal)
CPT/HCPCS: 76700